=== PATIENT | female | born 1950 | race Caucasian/White ===

== ENCOUNTER 2016-06-12 09:12 | Emergency (ER) | payer MEDICARE, MEDICAID ==
[2016-06-12] MEDS ORDERED: OPTIRAY 350 100 ML VIAL HMH IV ONE (09:13)
== END 2016-06-12 16:34 | disposition home or self-care (01) ==
LOC: ER 09:12
DX: K92.2 Gastrointestinal hemorrhage, unspecified (principal); N30.01 Acute cystitis with hematuria; I11.0 Hypertensive heart disease with heart failure; I50.9 Heart failure, unspecified; I48.91 Unspecified atrial fibrillation; H91.93 Unspecified hearing loss, bilateral; I25.2 Old myocardial infarction; F17.210 Nicotine dependence, cigarettes, uncomplicated; Z79.899 Other long term (current) drug therapy
CPT/HCPCS: 36415; 71010; 74177; 80048; 80162; 81001; 82274; 85025; 85610; 85730; 87088; 93005; 99285; Q9967; 87077; 87186